=== PATIENT | male | born 1995 | race Caucasian/White ===

== ENCOUNTER 2016-11-29 11:40 | Emergency (ER) | payer BC ==
[~2016-11-29] VITALS: Ht 182.9 cm; Wt 98.2 kg
[~2016-11-29 11:40] MED LIST: ADVIN10/60; SNG10
[2016-11-29 11:42] VITALS: TEMP 36.8; Ht 182.9 cm; Wt 98.2 kg
[2016-11-29] MEDS ORDERED: IBUPROFEN 800 MG TAB PO STA (12:16)
[2016-11-29] MEDS ORDERED: MONT1TAB3 PO (12:24)
[2016-11-29] MEDS ORDERED: ADVIN10/60 INH (12:24)
--- NOTE | 2016-11-29 12:32 | DIAGNOSTIC IMAGING REPORT ---
R ANKLE MIN 3 VIEWS ROUTINE CLINICAL HISTORY: 21 years-old Male presenting with ankle pain, swelling, eval injury. TECHNIQUE: Frontal, mortise, and lateral views of the right ankle were obtained. COMPARISON: None. FINDINGS: Obliquely oriented fracture of the distal fibular diaphysis above the level of the tibiofibular syndesmosis. Ankle mortise remains intact without evidence of medial clear space widening or medial malleolar fracture. Soft tissue swelling noted along the medial and lateral malleoli. Ankle joint effusion present. IMPRESSION: 1. Obliquely oriented fracture of the fibula above the level of the syndesmosis. No disruption of the ankle mortise to provide radiographic evidence of an exorotation/De [place] C injury pattern. Electronically signed by: Errol Kidd M.D. 11/29/2016 12:31 PM Dictated Date/Time: 11/29/2016 12:28 PM
--- NOTE | 2016-11-29 13:32 | EMERGENCY ROOM VISIT NOTE ---
ED Visit Note First contact with patient: 11:45 CHIEF COMPLAINT: Ankle pain HISTORY OF PRESENT ILLNESS: This 21-year-old male patient presents to the emergency department after sustaining an injury to the right ankle and foot with a twisting, inversion motion 2 weeks ago. Patient states initially the pain did not seem to be bothering him and he has been walking on the leg without much difficulty, however over the past day or 2 he has noticed increased pain especially with weightbearing. The patient complains of pain along the outside of the ankle. The patient denies any pain of the foot. The patient rates the pain as throbbing and 8/10. The patient is able to bear weight on the foot. Constant pain, worse with movement, weight bearing, and the dependent position. No knee pain, the patient is able to move their toes. No numbness or weakness of the foot, no laceration. The patient has not had a previous fracture to this ankle. The patient has taken no medications for the pain. The patient denies any other injury. REVIEW OF SYSTEMS: A 6 system review of systems was completed with positives and pertinent negatives listed in the HPI. ALLERGIES: Reviewed in chart MEDICATIONS: Reviewed in chart PMH: No significant past medical history SOCIAL HISTORY: Lives at home. Denies tobacco, alcohol, recreational drug use. PHYSICAL EXAM: Vital Signs: Reviewed Nurse's notes, vital signs stable. GENERAL : Pleasant and cooperative, no acute distress, but appears in pain, well- developed, well-nourished. MENTAL STATUS: Alert, oriented to person place and time, and cooperative. MUSCULOSKELETAL: The right ankle is mildly swollen and tender over the lateral malleolus and distal lateral calf, but the skin is intact and there is no ligamentous instability. There is no fifth metatarsal tenderness. There is no tenderness over the rest of the foot. There is no tibia/fibular tenderness. There is no visual deformity. The foot and toes are warm and well-perfused. Dorsalis pedis pulse 2+. Sensation to pain and light touch is intact. Capillary refill less than 2 seconds. EMERGENCY DEPARTMENT COURSE: I examined the patient. Differential diagnosis includes sprain, strain, contusion, fracture. X-rays of the right ankle were reviewed by myself and read by radiology and reveal an acute fracture of the distal fibula, intact ankle mortise. Ortho-Glass stirrup splint was applied to the ankle under my direction and the position was satisfactory. Neurovascular status was rechecked and intact. The patient was instructed on the use of crutches. The patient was instructed to follow up with orthopedics. The patient was discharged home in good condition. Current/Historical Medications Scheduled Fluticasone Prop/Salmeterol (Advair Diskus 100/50 60 Dose), 1 PUFF INH BID Montelukast Sodium (Singulair), 10 MG PO DAILY Allergies Coded Allergies: No Known Allergies (Unverified , 11/25/13) Vital Signs Date Time Temp Pulse Resp B/P (MAP) Pulse Ox O2 Delivery O2 Flow Rate FiO2 11/29/16 13:40 80 128/79 98 11/29/16 11:42 36.8 85 18 137/79 96 Medications Administered Medications (Trade) Dose Ordered Sig/Kuldeep Route Start Time Stop Time Status Last Admin Dose Admin Ibuprofen (Motrin Tab) 800 mg NOW STAT PO 11/29/16 12:16 11/29/16 12:17 DC 11/29/16 12:29 800 MG Departure Information Impression Primary Impression: Fracture of fibula, right, closed Dispostion Home / Self-Care Condition GOOD Referrals No Doctor, Assigned (PCP) Braulio Morales D.O. Patient Instructions Ankle Fx, My [facility] Additional Instructions Use the crutches to completely stay off of your injured right leg. Keep the splint clean and dry, splint cannot get wet. You may take ibuprofen 600 mg every 6 hours and/or Tylenol 1000 mg every 8 hours as needed for pain. Keep leg elevated as much as possible to help reduce swelling. Call the orthopedic clinic to schedule an appointment next week for further evaluation and management of your fracture. Please return to the Emergency Department for severe worsening pain, increased swelling of the leg, numbness or discoloration of her foot/toes, or any other concerns. Work Instructions Return To Work: 1 day Additional Work Instructions: Must be on crutches, no weight bearing on the right leg until cleared by orthopedics. Problem Qualifiers Primary Impression: Fracture of fibula, right, closed Encounter type: initial encounter Fibula location: shaft Fracture morphology: oblique Fracture alignment: nondisplaced Qualified Codes: S82.434A - Nondisplaced oblique fracture of shaft of right fibula, initial encounter for closed fracture
[2016-11-29 13:40] VITALS: BP 128/79; PULSE 80; O2SAT 98
== END 2016-11-29 13:40 | disposition home or self-care (01) ==
LOC: C.EDB 11:41 → C.EDD 13:40
DX: S82.401A Unspecified fracture of shaft of right fibula, initial encounter for closed fracture (principal); X58.XXXA Exposure to other specified factors, initial encounter